=== PATIENT | male | born 1940 | race African-American/Black ===

== ENCOUNTER 2019-10-30 16:41 | Emergency (ER) | payer OTHER, MEDICARE ==
[~2019-10-30] VITALS: Ht 182.9 cm; Wt 60.5 kg
[2019-10-30 17:28] LABS: CHLORIDE 107 mEq/L (98-107)
[2019-10-30 17:30] LABS: PROTHROMBIN TIME 11.1 sec (9.6-11.0)
[2019-10-30 17:33] LABS: BASOPHILS % 0.4 % (0.0-2.0); EOSINOPHILS % 0.8 % (0.0-5.0); HEMATOCRIT. 41.3 % (42.0-52.0); HEMOGLOBIN. 13.9 g/dL (14.0-18.0); LYMPHOCYTES % 13.6 % (20.0-50.0); MEAN CORPUSCULAR HEMOGLOBIN 30.4 pg (28.0-32.0); MEAN CORPUSCULAR VOLUME 90.2 fL (80.0-94.0); MEAN PLATELET VOLUME 8.5 fl (7.4-10.4); MONOCYTES % 5.3 % (2.0-8.0); NEUTROPHILS % 79.9 % (40.0-76.0); PLATELET 158 x1000/uL (130-400); RED BLOOD CELL COUNT 4.58 mill/uL (4.7-6.1); RED CELL DISTRIBUTION WIDTH 13.8 % (11.6-14.6)
[2019-10-30] MEDS ORDERED: SODIUM CHLORIDE 0.9% 1,000 ML IV ONE (18:38)
[2019-10-30] MEDS ORDERED: MAGNESIUM/ALUMINUM HYDROXIDE/SIMETHICONE 30ML UDC PO ONE (18:45)
[2019-10-30] MEDS ORDERED: FAMOTIDINE 20MG/2ML VIAL IV ONE (18:45)
[2019-10-30] MEDS ORDERED: VISCOUS LIDOCAINE 2% 15 ML UDC PO ONE (18:45)
[2019-10-30 19:06] LABS: CLARITY URINE CLEAR (CLEAR); COLOR URINE YELLOW (YELLOW); KETONES URINE TRACE (NEGATIVE); LEUKOCYTE ESTERASE URINE NEGATIVE (NEGATIVE); NITRITE URINE NEGATIVE (NEGATIVE); OCCULT BLOOD URINE NEGATIVE (NEGATIVE); PH URINE 6.5 (4.5-8.0); PROTEIN URINE 1+ (NEGATIVE)
[2019-10-30 22:29] VITALS: BP 148/69
[2019-10-31] MEDS ORDERED: MIDAZOLAM HCL 2 MG/2 ML VIAL ONE (08:59)
[2019-10-31] MEDS ORDERED: ROCURONIUM BROMIDE 10MG/ML VIAL 5ML IV ONE (08:59)
[2019-10-31] MEDS ORDERED: FENTANYL CITRATE/PF 50MCG/ML 2ML VIAL ONE (08:59)
[2019-10-31] MEDS ORDERED: PROPOFOL 200MG/20ML VIAL IV ONE (08:59)
[2019-10-31] MEDS ORDERED: DEXAMETHASONE 4MG/ML 1ML VIAL ONE (09:52)
[2019-10-31] MEDS ORDERED: KETOROLAC 30MG/ML VIAL ONE (09:52)
[2019-10-31] MEDS ORDERED: CEFAZOLIN SODIUM 1000MG/VIAL ONE (09:52)
[2019-10-31] MEDS ORDERED: LIDOCAINE HCL/PF 1% 10 MG/ML 5ML VIAL ONE (09:52)
[2019-10-31] MEDS ORDERED: NEOSTIGMINE METHYLSULFATE 1MG/ML 10 ML VIAL ONE (10:30)
[2019-10-31] MEDS ORDERED: GLYCOPYRROLATE 0.2 MG/ML 2ML VIAL ONE (10:30)
== END 2019-10-30 22:49 | disposition short-term general hospital (02) ==
LOC: ER 16:41 → CANBEDREQ 22:52
DX: R55 Syncope and collapse (principal); E78.5 Hyperlipidemia, unspecified; R94.31 Abnormal electrocardiogram [ECG] [EKG]
CPT/HCPCS: 36415; 71045; 80053; 81003; 83690; 83880; 84484; 85025; 85610; 93005; 96361; 96374; 99285; J3490; J7030

== ENCOUNTER 2019-12-03 02:29 | Emergency (ER) | payer MEDICARE, OTHER ==
[~2019-12-03] VITALS: Ht 172.7 cm; Wt 55.0 kg
[2019-12-03] MEDS ORDERED: ONDANSETRON HCL 4MG/2ML INJ IV ONE (03:00)
[2019-12-03 03:12] LABS: BASOPHILS % 0.3 % (0.0-2.0); EOSINOPHILS % 0.9 % (0.0-5.0); HEMATOCRIT. 42.3 % (42.0-52.0); HEMOGLOBIN. 13.7 g/dL (14.0-18.0); LYMPHOCYTES % 14.2 % (20.0-50.0); MEAN CORPUSCULAR HEMOGLOBIN 29.6 pg (28.0-32.0); MEAN CORPUSCULAR VOLUME 91.2 fL (80.0-94.0); MEAN PLATELET VOLUME 6.9 fl (7.4-10.4); MONOCYTES % 7.1 % (2.0-8.0); NEUTROPHILS % 77.5 % (40.0-76.0); PLATELET 212 x1000/uL (130-400); RED BLOOD CELL COUNT 4.64 mill/uL (4.7-6.1); RED CELL DISTRIBUTION WIDTH 14.3 % (11.6-14.6)
[2019-12-03 03:14] LABS: CHLORIDE 109 mEq/L (98-107)
[2019-12-03] MEDS ORDERED: NITROGLYCERIN 0.4MG TABLET SL SL ONE (05:15)
[2019-12-03 05:30] VITALS: BP 150/72
== END 2019-12-03 06:03 | disposition short-term general hospital (02) ==
LOC: ER 02:29
DX: R53.1 Weakness (principal); R11.2 Nausea with vomiting, unspecified; R42 Dizziness and giddiness; E78.00 Pure hypercholesterolemia, unspecified
CPT/HCPCS: 36415; 70450; 71045; 80053; 83880; 84484; 85025; 93005; 96374; 99285; J2405

== ENCOUNTER 2023-06-24 17:16 | Emergency (ER) | payer MEDICARE, OTHER ==
[~2023-06-24] VITALS: Ht 177.8 cm; Wt 61.0 kg
[2023-06-24 17:23] VITALS: O2SAT 92
[2023-06-24 19:00] LABS: HEMATOCRIT. 42.3 % (42.0-52.0); HEMOGLOBIN. 14.1 g/dL (14.0-18.0); MEAN CORPUSCULAR HEMOGLOBIN 30.4 pg (28.0-32.0); MEAN CORPUSCULAR HGB CONC 33.2 g/dL (31.0-37.0); MEAN CORPUSCULAR VOLUME 91.5 fL (80.0-94.0); MEAN PLATELET VOLUME 7.2 fl (7.4-10.4); PLATELET 241 x1000/uL (130-400); RED BLOOD CELL COUNT 4.63 mill/uL (4.7-6.1); RED CELL DISTRIBUTION WIDTH 15.3 % (11.6-14.6); WHITE BLOOD COUNT 4.9 x1000/uL (4.5-11.0)
[2023-06-24 19:10] LABS: PARTIAL THROMBOPLASTIN TIME 25.2 sec (23.4-31.0)
[2023-06-24 19:17] LABS: DIFFERENTIAL COMMENT 1
[2023-06-24 19:21] LABS: ALANINE AMINOTRANSFERASE 68 IU/L (10-49); ALBUMIN 4.3 g/dL (3.2-4.8); ASPARTATE AMINOTRANSFERASE 122 IU/L (<34); BILIRUBIN TOTAL 1.6 mg/dL (0.1-1.0); CALCIUM 9.9 mg/dL (8.7-10.4); CARBON DIOXIDE 21 mEq/L (21-32); CHLORIDE 107 mEq/L (98-107); CREATININE 1.7 mg/dL (0.6-1.3); GLUCOSE 129 mg/dL (70-105); POTASSIUM 4.4 mEq/L (3.5-5.1); PROTEIN TOTAL 6.8 g/dL (6.0-8.3); SODIUM 142 mEq/L (136-145); TROPONIN I HIGH SENSITIVITY 30 ng/L (3.0-53); UREA NITROGEN BLOOD 35 mg/dL (9-23)
[2023-06-24 19:26] LABS: ETHANOL BLOOD < 10 mg/dL (<10)
[2023-06-24] MEDS ORDERED: KETOROLAC 30MG/ML VIAL IV ONE (19:45)
[2023-06-24] MEDS ORDERED: SODIUM CHLORIDE 0.9% 1,000 ML IV ONE (19:45)
[2023-06-24 20:15] LABS: PLATELET ESTIMATE NORMAL
[2023-06-24 22:08] VITALS: BP 128/76; PULSE 67; RESP 19; TEMP 97.9
== END 2023-06-24 22:46 | disposition short-term general hospital (02) ==
LOC: ER 17:16 → EDBEDREQ 19:06 → ER 22:46
DX: S72.002A Fracture of unspecified part of neck of left femur, initial encounter for closed fracture (principal); E78.00 Pure hypercholesterolemia, unspecified; R55 Syncope and collapse; I10 Essential (primary) hypertension; W18.39XA Other fall on same level, initial encounter; Y93.89 Activity, other specified; Y92.89 Other specified places as the place of occurrence of the external cause; Y99.8 Other external cause status
CPT/HCPCS: 80053; 80320; 82962; 83880; 85025; 85610; 85730; 86850; 86900; 86901; 84484; 36415; 71045; 72170; 73560; 70450; 93005; 96361; 96374; 99291; J1885; J7030; G0480